=== PATIENT | male | born 1970 | race Caucasian/White ===

== ENCOUNTER → 2024-08-21 | Outpatient (CLI) | payer OTHER, SELFPAY ==
[2024-08-21 13:01] LABS: Fibrinogen 442 mg/dl (203-444)
[2024-08-21 15:08] LABS: CRP 6.11 mg/L (0.0-3.0); Ferritin 336 ng/mL (37-417); Vitamin B12 776 pg/mL (180-914); Vitamin D,25 Hydroxy 37.3 ng/mL (30-100)
[2024-08-21 15:40] LABS: Iron 124 ug/dL (65-175)
[2024-08-23 05:08] LABS: CRP, High Sensitivity 4.54 mg/L (0.00-3.00); HOMOCYSTEINE 6.6 umol/L (0.0-14.5)
== END | disposition home or self-care (01) ==
LOC: BIMLAB 09:21
PROVIDERS: Referring Provider Nurse Practitioner Family; Visit Provider Nurse Practitioner Family
DX: A69.20 Lyme disease, unspecified (principal); G89.29 Other chronic pain; R53.82 Chronic fatigue, unspecified; R61 Generalized hyperhidrosis; H93.13 Tinnitus, bilateral; I10 Essential (primary) hypertension; G90.9 Disorder of the autonomic nervous system, unspecified; F41.9 Anxiety disorder, unspecified; R45.4 Irritability and anger; D68.69 Other thrombophilia
CPT/HCPCS: 36415; 82175; 82306; 82607; 82728; 82746; 83090; 83540; 83655; 83695; 83825; 85305; 85306; 85307; 85384; 86140; 86141; 86644; 86645; 86658; 86664; 86665

== ENCOUNTER → 2025-02-13 | Outpatient (CLI) | payer OTHER, SELFPAY ==
--- OUTSIDE RECORDS SUMMARY | 2025-02-13 16:36 | XMS RPT_ITS | CCD ---
Author Organization [facility] Care Team Providers Care Electronic Prepress Operator Name Role Phone DE LEONLONNYBRAVO L Unavailable Unavailable BRAVO DE LEON L Unavailable Unavailable Physician, No Pcp Primary Care Provider Unavaila ble PHYSICIAN, NO PCP Primary Care Unavailable TRACIE DIAZ Referring Unavailable Kadie AUTO DAMAGE ESTIMATOR, Julia Ruelas Referring Unavailtaya Engle AUTO DAMAGE ESTIMATOR, Julia Ruelas Attending UnavailMARISOL Gutierrez Primary Care Unavailable MARISOL NEAL Attending Unavailable MARISOL NEAL Referring Unavailable MARISOL NEAL Primary Care Unavailable STEFANO RUSSELL Attending Unavailable MARISOL NEAL Referring Unavailable MARISOL NEAL Primary Care Unavailable AUGUST SOTO Attending Unavailable MARISOL NEAL Referring Unavailable MARISOL NEAL Primary Care Unavailable JULIA ENGLE Attending Unavailable JULIA ENGLE Referring Unavailable MARISOL NEAL Primary Care Unavailable PCP, NONE Referring Unavailable MARISOL NEAL Attending Unavailable MARISOL NEAL Referring Unavailable MARISOL NEAL Primary Care Unavailable AUGUST SOTO Attending Unavailable MARISOL NEAL Referring Unavailable MARISOL NEAL Primary Care Unavailable MARISOL NEAL Attending Unavailable Problems Active Problems Problem Classification Problem Date Documented Da te Episodic/Chronic Anxiety disorders (1 source) Anxiety disorder, unspecified; Translations: [Anxiety disorder, unspecified] Onset: 11-02-2024 Chronic Coagulation and hemorrhagic disorders (1 source) Other thrombophilia; Translations: [Other thrombophilia] Onset: 11-02-2024 Chronic Essential hypertension (1 source) Essential (primary) hypertension; Translations: [Essential (primary) hypertension] Onset: 11-02-2024 Chronic Malaise and fatigue (1 source) Chronic fatigue, unspecified; Translations: [Chronic fatigue, unspecified] Onset: 02-06-2025 Chronic Malaise and fatigue (1 source) Other fatigue; Translations: [Other fatigue] Onset: 02-06-2025 Episodic Other connective tissue disease (1 source) Synovial cyst of right popliteal space; Translations: [Synovial cyst of popliteal space [Key], right knee] 02-01-2023 Episodic Other connective tissue disease (1 source) Synovial cyst of popliteal space [Key], right knee; Translations: [Synovial cyst of popliteal space (Key), right knee] Onset: 02-01-2023 Episodic Other infections; including parasitic (1 source) 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; Translations: [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] Onset: 10-24-2024 Chronic Other nervous system disorders (1 source) Other chronic pain; Translations: [Other chronic pain] Onset: 11-02-2024 Chronic Other nervous system disorders (1 source) Disorder of the autonomic nervous system, unspecified; Translations: [Disorder of the autonomic nervous system, unspecified] Onset: 11-02-2024 Chronic Past or Other Problems Problem Classification Problem Date Documented Da te Episodic/Chronic Anxiety disorders (1 source) Irritability and anger; Translations: [Irritability and anger] Onset: 11-02-2024 Episodic Bacterial infection; unspecified site (1 source) Systemic bartonellosis; Translations: [Systemic bartonellosis] Onset: 11-02-2024 Episodic Other ear and sense organ disorders (1 source) Tinnitus, bilateral; Translations: [Tinnitus, bilateral] Onset: 11-02-2024 Episodic Other infections; including parasitic (2 sources) Lyme disease, unspecified; Translations: [Lyme disease, unspecified] Onset: 09-23-2024 Episodic Other lower respiratory disease (1 source) Dyspnea, unspecified; Translations: [Dyspnea, unspecified] Onset: 11-02-2024 Episodic Other screening for suspected conditions (not mental disorders or infectious disease) (1 source) Other specified abnormal findings of blood chemistry; Translations: [Other specified abnormal findings of blood chemistry] Onset: 05-02-2024 Episodic Other skin disorders (1 source) Generalized hyperhidrosis; Translations: [Generalized hyperhidrosis] Onset: 07-06-2025 Episodic Results Test Name Value Interpretation Reference Range Facility CBC AND DIFFERENTIALon 02-06 ABSOLUTE BASOPHIL 0.1 x10*3/uL Normal 0.0-0.1 [facility] Comment on above: Performed By: #### 4 [id number] #### [address] ABSOLUTE EOSINOPHIL 0.6 x10*3/uL High 0.1-0.[address] [facility] Comment on above: Performed By: #### 4 [id number] #### [address] ABSOLUTE IMMATURE GRANULOCYTES 0.0 x10*3/uL Normal 0.0-0.1 [facility] Comment on above: Performed By: #### 4 [id number] #### [address] ABSOLUTE LYMPH 2.6 x10*3/uL Normal 1.2-3.3 [facility] Comment on above: Performed By: #### 4 [id number] #### [address] ABSOLUTE MONO 0.8 x10*3/uL High 0.2-0.6 [facility] Comment on above: Performed By: #### 4 [id number] #### [address] ABSOLUTE NEUTROPHIL 4.0 x10*3/uL Normal 2.4-6.[address] [facility] Comment on above: Performed By: #### 4 [id number] #### [address] Basophils/100 WBC (Bld) 1.2 % Normal [facility] Comment on above: Performed By: #### 4 [id number] #### [address] Eosinophils/100 WBC (Bld) 7.4 % Normal [facility] Comment on above: Performed By: #### 4 [id number] #### [address] Erythrocyte distribution width (RBC) [Ratio] 12.9 % Normal 11.5-14.5 [facility] Comment on above: Performed By: #### 4 [id number] #### [address] Hematocrit (Bld) [Volume fraction] 43.7 % Normal 37.7-51.1 [facility] Comment on above: Performed By: #### 4 [id number] #### [address] Hemoglobin (Bld) [Mass/Vol] 14.8 g/dL Normal 12.8-17.7 [facility] Comment on above: Performed By: #### 4 [id number] #### [address] Immature granulocytes/100 WBC (Bld) 0.2 % Normal [facility] Comment on above: Performed By: #### 4 [id number] #### [address] Lymphocytes/100 WBC (Bld) 31.7 % Normal [facility] Comment on above: Performed By: #### 4 [id number] #### [address] MCH (RBC) [Entitic mass] 32.0 pg Normal 27.0-34.2 [facility] Comment on above: Performed By: #### 4 [id number] #### [address] MCHC (RBC) [Mass/Vol] 33.9 g/dL Normal 31.4-36.2 [facility] Comment on above: Performed By: #### 4 [id number] #### [address] MCV (RBC) [Entitic vol] 94.6 fL Normal 80.6-99 [facility] Comment on above: Performed By: #### 4 [id number] #### [address] Monocytes/100 WBC (Bld) 9.5 % Normal [facility] Comment on above: Performed By: #### 4 [id number] #### [address] Neutrophils/100 WBC (Bld) 50.0 % Normal [facility] Comment on above: Performed By: #### 4 [id number] #### [address] NUCLEATED RED BLOOD CELLS AUTO 0.0 % Normal 0.0-1.0 [facility] Comment on above: Performed By: #### 4 [id number] #### [address] PLATELET COUNT 223 x10*3/uL Normal 150-400 [facility] Comment on above: Performed By: #### 4 [id number] #### [address] RED BLOOD CELL COUNT 4.62 x10*6/uL Normal 3.70-5.70 [facility] Comment on above: Performed By: #### 4 [id number] #### [address] WHITE BLOOD CELLS 8.1 x10*3/uL Normal 4.3-10.3 [facility] Comment on above: Performed By: #### 4 [id number] #### [address] COMPREHENSIVE METABOLIC PANE Titi 02-06-2025 Albumin [Mass/Vol] 4.6 g/dL Normal 3.5-5.0 [facility] Comment on above: Performed By: #### 4 [id number] #### [address] ALK PHOS 58 U/L Normal 24-126 [facility] Comment on above: Performed By: #### 4 [id number] #### [address] ALT [Catalytic activity/Vol] 30 U/L Normal 4-50 [facility] Comment on above: Performed By: #### 4 [id number] #### [address] AST [Catalytic activity/Vol] 33 U/L Normal 3-55 [facility] Comment on above: Performed By: #### 4 [id number] #### [address] Bilirubin [Mass/Vol] 0.2 mg/dL Normal 0.2-1.6 [facility] Comment on above: Performed By: #### 4 [id number] #### [address] Calcium [Mass/Vol] 9.8 mg/dL Normal 8.4-10.4 [facility] Comment on above: Performed By: #### 4 [id number] #### [address] Chloride [Moles/Vol] 101 mmol/L Normal 96-109 [facility] Comment on above: Performed By: #### 4 [id number] #### [address] CO2 [Moles/Vol] 29 mmol/L Normal 22-30 [facility] Comment on above: Performed By: #### 4 [id number] #### [address] Creatinine [Mass/Vol] 0.75 mg/dL Normal 0.66-1.25 [facility] Comment on above: Performed By: #### 4 [id number] #### [place] [address] [place] GLOMERULAR FILTRATION RATE ML/MIN/1.73 SQ M.PREDICTED 105.9 mL/min/1.73m*2 Normal >=60.0 [facility] Comment on above: Result Comment: eGFR calculation based on the Chronic Kidney Disease Epidemiology Collaboration (CKD-EPI) equation refit without adjustment for race. Categories in Chronic Kidney Disease (CKD) Category: GFR(mL/min/1.73m^2) Interpretation: G1* 90 or greater Normal or high G2* 60-89 Mild decrease G3a 45-59 Mild to moderate decrease G3b 30-44 Moderate to severe decrease G4 15-29 Severe decrease G5 14 or less Kidney failure *G1&G2: In the absence of evidence of kidney damage, neither GFR category G1 nor G2 fulfill the criteria for CKD Kidney Int Suppl.2013;3:1-150 Performed By: #### 4 [id number] #### [address] [address] Glucose [Mass/Vol] 110 mg/dL High 65-100 [facility] Comment on above: Performed By: #### 4 [id number] #### [address] Potassium [Moles/Vol] 4.1 mmol/L Normal 3.6-5.1 [facility] Comment on above: Performed By: #### 4 [id number] #### [address] Protein [Mass/Vol] 7.2 g/dL Normal 6.3-8.2 [facility] Comment on above: Performed By: #### 4 [id number] #### [address] Sodium [Moles/Vol] 138 mmol/L Normal 135-147 [facility] Comment on above: Performed By: #### 4 [id number] #### [address] Urea nitrogen [Mass/Vol] 17 mg/dL Normal 8-26 [facility] Comment on above: Performed By: #### 4 [id number] #### [address] CBC AND DIFFERENTIALon 12-08 ABSOLUTE BASOPHIL 0.1 x10*3/uL Normal 0.0-0.1 [facility] Comment on above: Performed By: #### 4 [id number] #### [address] ABSOLUTE EOSINOPHIL 0.7 x10*3/uL High 0.1-0.3 [facility] Comment on above: Performed By: #### 4 [id number] #### [address] ABSOLUTE IMMATURE GRANULOCYTES 0.0 x10*3/uL Normal 0.0-0.1 [facility] Comment on above: Performed By: #### 4 [id number] #### [address] ABSOLUTE LYMPH 2.7 x10*3/uL Normal 1.2-3.3 [facility] Comment on above: Performed By: #### 4 [id number] #### [address] ABSOLUTE MONO 0.9 x10*3/uL High 0.2-0.6 [facility] Comment on above: Performed By: #### 4 [id number] #### [address] ABSOLUTE NEUTROPHIL 4.5 x10*3/uL Normal 2.4-6.6 [facility] Comment on above: Performed By: #### 4 [id number] #### [address] Basophils/100 WBC (Bld) 0.9 % Normal [facility] Comment on above: Performed By: #### 4 [id number] #### [address] Eosinophils/100 WBC (Bld) 7.6 % Normal [facility] Comment on above: Performed By: #### 4 [id number] #### [address] Erythrocyte distribution width (RBC) [Ratio] 14.0 % Normal 11.5-14.5 [facility] Comment on above: Performed By: #### 4 [id number] #### [address] Hematocrit (Bld) [Volume fraction] 43.4 % Normal 37.7-51.1 [facility] Comment on above: Performed By: #### 4 [id number] #### [address] Hemoglobin (Bld) [Mass/Vol] 14.8 g/dL Normal 12.8-17.7 [facility] Comment on above: Performed By: #### 4 [id number] #### [address] Immature granulocytes/100 WBC (Bld) 0.3 % Normal [facility] Comment on above: Performed By: #### 4 [id number] #### [address] Lymphocytes/100 WBC (Bld) 30.0 % Normal [facility] Comment on above: Performed By: #### 4 [id number] #### [address] MCH (RBC) [Entitic mass] 31.2 pg Normal 27.0-34.2 [facility] Comment on above: Performed By: #### 4 [id number] #### [address] MCHC (RBC) [Mass/Vol] 34.1 g/dL Normal 31.4-36.2 [facility] Comment on above: Performed By: #### 4 [id number] #### [address] MCV (RBC) [Entitic vol] 91.4 fL Normal 80.6-99 [facility] Comment on above: Performed By: #### 4 [id number] #### [address] Monocytes/100 WBC (Bld) 10.0 % Normal [facility] Comment on above: Performed By: #### 4 [id number] #### [address] Neutrophils/100 WBC (Bld) 51.2 % Normal [facility] Comment on above: Performed By: #### 4 [id number] #### [address] NUCLEATED RED BLOOD CELLS AUTO 0.0 % Normal 0.0-1.0 [facility] Comment on above: Performed By: #### 4 [id number] #### [address] PLATELET COUNT 244 x10*3/uL Normal 150-400 [facility] Comment on above: Performed By: #### 4 [id number] #### [address] RED BLOOD CELL COUNT 4.75 x10*6/uL Normal 3.70-5.70 [facility] Comment on above: Performed By: #### 4 [id number] #### [address] WHITE BLOOD CELLS 8.9 x10*3/uL Normal 4.3-10.3 [facility] Comment on above: Performed By: #### 4 [id number] #### [address] COMPREHENSIVE METABOLIC PANE Titi 12-08-2024 Albumin [Mass/Vol] 4.4 g/dL Normal 3.5-5.0 [facility] Comment on above: Performed By: #### 4 [id number] #### [address] ALK PHOS 72 U/L Normal 24-126 [facility] Comment on above: Performed By: #### 4 [id number] #### [address] ALT [Catalytic activity/Vol] 51 U/L High 4-50 [facility] Comment on above: Performed By: #### 4 [id number] #### [address] Anion gap [Moles/Vol] 11 mmol/L Normal 8-12 [facility] Comment on above: Performed By: #### 4 [id number] #### [address] AST [Catalytic activity/Vol] 40 U/L Normal 3-55 [facility] Comment on above: Performed By: #### 4 [id number] #### [address] Bilirubin [Mass/Vol] 0.3 mg/dL Normal 0.2-1.6 [facility] Comment on above: Performed By: #### 4 [id number] #### [address] Calcium [Mass/Vol] 9.7 mg/dL Normal 8.4-10.4 [facility] Comment on above: Performed By: #### 4 [id number] #### [address] Chloride [Moles/Vol] 101 mmol/L Normal 96-109 [facility] Comment on above: Performed By: #### 4 [id number] #### [address] CO2 [Moles/Vol] 26 mmol/L Normal 22-30 [facility] Comment on above: Performed By: #### 4 [id number] #### [address] [address] [facility] Creatinine [Mass/Vol] 0.75 mg/dL Normal 0.66-1.25 [facility] Comment on above: Performed By: #### 4 [id number] #### [address] GLOMERULAR FILTRATION RATE ML/MIN/1.73 SQ M.PREDICTED 105.9 mL/min/1.73m*2 Normal >=60.0 [facility] Comment on above: Result Comment: eGFR calculation based on the Chronic Kidney Disease Epidemiology Collaboration (CKD-EPI) equation refit without adjustment for race. Categories in Chronic Kidney Disease (CKD) Category: GFR(mL/min/1.73m^2) Interpretation: G1* 90 or greater Normal or high G2* 60-89 Mild decrease G3a 45-59 Mild to moderate decrease G3b 30-44 Moderate to severe decrease G4 15-29 Severe decrease G5 14 or less Kidney failure *G1&G2: In the absence of evidence of kidney damage, neither GFR category G1 nor G2 fulfill the criteria for CKD Kidney Int Suppl.2013;3:1-150 Performed By: #### 4 [id number] #### [address] Glucose [Mass/Vol] 63 mg/dL Low 65-100 [facility] Comment on above: Performed By: #### 4 [id number] #### [address] Potassium [Moles/Vol] 4.0 mmol/L Normal 3.6-5.1 [facility] Comment on above: Performed By: #### 4 [id number] #### [address] [address] [facility] Protein [Mass/Vol] 7.1 g/dL Normal 6.3-8.2 [facility] Comment on above: Performed By: #### 4 [id number] #### [address] [address] [facility] Sodium [Moles/Vol] 138 mmol/L Normal 135-147 [facility] Comment on above: Performed By: #### 4 [id number] #### [address] [place] [address] [place] Urea nitrogen [Mass/Vol] 15 mg/dL Normal 8-26 [facility] Comment on above: Performed By: #### 4 [id number] #### [address] [place] [address] [place] HEMOGLOBIN A1Con 12-08-2024 HbA1c (Bld) [Mass fraction] 5.8 % High 4.8-5.6 [facility] Comment on above: Order Comment: Perfo rmed at: 01 - [facility] [id number] [place], [place] [id number] Director: Dmitriy Hardin PhD, Phone: [phone] Result Comment: Pred iabetes: 5.7 - 6.4 Diabetes: >6.4 Glycemic control for adults with diabetes: <7.0 Performed By: #### 4 [id number] #### [address] [address] [place] INSULIN, FASTINGon INSULIN 33.0 uIU/mL High 2.6-24.9 [facility] Comment on above: Order Comment: Perfo rmed at: 01 - [facility] [id number] [place], [place] [id number] Scale Model Maker: Dmitriy Hardin PhD, Phone: [phone] Performed By: #### 4 [id number] #### [facility] [address] [place] [address] LIPID PANELon 12-08-2024 Cholesterol [Mass/Vol] 215 mg/dL High <=200 [facility] Comment on above: Performed By: #### 4 [id number], [id number] #### [address] [address] [facility] Cholesterol in HDL [Mass/Vol] 41.0 mg/dL Normal 40.0-59.9 [facility] Comment on above: Performed By: #### 4 [id number], [id number] #### [address] [address] LDL CHOLESTEROL CALCULATED 118 mg/dL High <=100 [facility] Comment on above: Result Comment: LDL REFERENCE RANGE: Optimal <100 mg/dl Near Optimal 100-129 mg/dL Borderline High 130-159 mg/dL High 160-189 mg/dL Very High >=190 mg/dL LDL-c is calculated using the Friedewald equation: LDL Cholesterol = (Total Cholesterol) - (HDL Cholesterol) - (Triglycerides/5). Performed By: #### 4 [id number], [id number] #### [address] [place] [address] [facility] Triglyceride [Mass/Vol] 278 mg/dL High <=150 [facility] Comment on above: Performed By: #### 4 [id number], [id number] #### [facility] [address] [place] [address] VLDL CHOLESTEROL BELKYS 56 mg/dL High <=41 [facility] Comment on above: Performed By: #### 4 [id number], [id number] #### [facility] [address] [place] [address] MISC LAB TESTon 11-03-2024 TEST RESULT COMMENT Normal [facility] Comment on above: Order Comment: Perfo rmed At: 01 [email or web address] [address] [id number] Abel Mckinney MD Ph:[phone] Performed At: [address] [id number] Lashawn Izaguirre PhD Ph:[phone] Result Comment: Test Ordered: [id number] MICHAEL-1 Antigen MICHAEL-1 Antigen 79.5 [H ] ng/mL 01 Plasma samples that contain residual platelets post centrifugation may yield spuriously elevated MICHAEL-1 antigen levels following a freeze thaw due to release of intra-platelet stores of MICHAEL-1 antigen. Serum will also yield a spuriously high MICHAEL-1 antigen level. Reference Range: 4.0 - 43.0 Performed By: #### 4 [id number] #### [facility] [address] [place] [address] CBC AND DIFFERENTIALon 11-02 ABSOLUTE BASOPHIL 0.1 x10*3/uL Normal 0.0-0.1 [facility] Comment on above: Performed By: #### 4 [id number] #### [facility] [address] [place] [address] ABSOLUTE EOSINOPHIL 0.5 x10*3/uL High 0.1-0.3 [facility] Comment on above: Performed By: #### 4 [id number] #### [facility] [address] [place] [address] ABSOLUTE IMMATURE GRANULOCYTES 0.0 x10*3/uL Normal 0.0-0.1 [facility] Comment on above: Performed By: #### 4 [id number] #### [facility] [address] [place] [address] ABSOLUTE LYMPH 1.6 x10*3/uL Normal 1.2-3.3 [facility] Comment on above: Performed By: #### 4 [id number] #### [address] ABSOLUTE MONO 0.5 x10*3/uL Normal 0.2-0.6 [facility] Comment on above: Performed By: #### 4 [id number] #### [address] ABSOLUTE NEUTROPHIL 4.0 x10*3/uL Normal 2.4-6.6 [facility] Comment on above: Performed By: #### 4 [id number] #### [address] Basophils/100 WBC (Bld) 0.9 % Normal [facility] Comment on above: Performed By: #### 4 [id number] #### [address] Eosinophils/100 WBC (Bld) 7.8 % Normal [facility] Comment on above: Performed By: #### 4 [id number] #### [address] Erythrocyte distribution width (RBC) [Ratio] 13.2 % Normal 11.5-14.5 [facility] Comment on above: Performed By: #### 4 [id number] #### [address] Hematocrit (Bld) [Volume fraction] 44.2 % Normal 37.7-51.1 [facility] Comment on above: Performed By: #### 4 [id number] #### [address] Hemoglobin (Bld) [Mass/Vol] 14.8 g/dL Normal 12.8-17.7 [facility] Comment on above: Performed By: #### 4 [id number] #### [address] Immature granulocytes/100 WBC (Bld) 0.3 % [facility] Comment on above: Performed By: #### 4 [id number] #### [address] Lymphocytes/100 WBC (Bld) 24.0 % Normal [facility] Comment on above: Performed By: #### 4 [id number] #### [address] MCH (RBC) [Entitic mass] 30.1 pg Normal 27.0-34.2 [facility] Comment on above: Performed By: #### 4 [id number] #### [address] MCHC (RBC) [Mass/Vol] 33.5 g/dL Normal 31.4-36.2 [facility] Comment on above: Performed By: #### 4 [id number] #### [address] MCV (RBC) [Entitic vol] 90.0 fL Normal 80.6-99 [facility] Comment on above: Performed By: #### 4 [id number] #### [address] Monocytes/100 WBC (Bld) 7.8 % Normal [facility] Comment on above: Performed By: #### 4 [id number] #### [address] Neutrophils/100 WBC (Bld) 59.2 % Normal [facility] Comment on above: Performed By: #### 4 [id number] #### [address] PLATELET COUNT 196 x10*3/uL Normal 150-400 [facility] Comment on above: Performed By: #### 4 [id number] #### [address] RED BLOOD CELL COUNT 4.91 x10*6/uL Normal 3.70-5.70 [facility] Comment on above: Performed By: #### 4 [id number] #### [address] WHITE BLOOD CELLS 6.8 x10*3/uL Normal 4.3-10.3 [facility] Comment on above: Performed By: #### 4 [id number] #### [address] COMPREHENSIVE METABOLIC PANE Titi 11-02-2024 Albumin [Mass/Vol] 4.2 g/dL Normal 3.5-5.0 [facility] Comment on above: Performed By: #### 4 [id number] #### [address] ALK PHOS 77 U/L Normal 24-126 [facility] Comment on above: Performed By: #### 4 [id number] #### [address] ALT [Catalytic activity/Vol] 116 U/L High 4-50 [facility] Comment on above: Performed By: #### 4 [id number] #### [address] AST [Catalytic activity/Vol] 58 U/L High 3-55 [facility] Comment on above: Performed By: #### 4 [id number] #### [address] Bilirubin [Mass/Vol] 0.4 mg/dL Normal 0.2-1.6 [facility] Comment on above: Performed By: #### 4 [id number] #### [address] Calcium [Mass/Vol] 9.6 mg/dL Normal 8.4-10.4 [facility] Comment on above: Performed By: #### 4 [id number] #### [address] Chloride [Moles/Vol] 103 mmol/L Normal 96-109 [facility] Comment on above: Performed By: #### 4 [id number] #### [address] CO2 [Moles/Vol] 24 mmol/L Normal 22-30 [facility] Comment on above: Performed By: #### 4 [id number] #### [address] [address] Creatinine [Mass/Vol] 0.69 mg/dL Normal 0.66-1.25 [facility] Comment on above: Performed By: #### 4 [id number] #### [address] GLOMERULAR FILTRATION RATE ML/MIN/1.73 SQ M.PREDICTED 108.6 mL/min/1.73m*2 Normal >=60.0 [facility] Comment on above: Result Comment: eGFR calculation based on the Chronic Kidney Disease Epidemiology Collaboration (CKD-EPI) equation refit without adjustment for race. Categories in Chronic Kidney Disease (CKD) Category: GFR(mL/min/1.73m^2) Interpretation: G1* 90 or greater Normal or high G2* 60-89 Mild decrease G3a 45-59 Mild to moderate decrease G3b 30-44 Moderate to severe decrease G4 15-29 Severe decrease G5 14 or less Kidney failure *G1&G2: In the absence of evidence of kidney damage, neither GFR category G1 nor G2 fulfill the criteria for CKD Kidney Int Suppl.2013;3:1-150 Performed By: #### 4 [id number] #### [address] [address] [place] Glucose [Mass/Vol] 118 mg/dL High 65-100 [facility] Comment on above: Performed By: #### 4 [id number] #### [address] [address] [place] Potassium [Moles/Vol] 4.4 mmol/L Normal 3.6-5.1 [facility] Comment on above: Performed By: #### 4 [id number] #### [address] [place] [address] [place] Protein [Mass/Vol] 7.3 g/dL Normal 6.3-8.2 [facility] Comment on above: Performed By: #### 4 [id number] #### [address] [place] [address] [place] Sodium [Moles/Vol] 137 mmol/L Normal 135-147 [facility] Comment on above: Performed By: #### 4 [id number] #### [address] [place] [address] [place] Urea nitrogen [Mass/Vol] 17 mg/dL Normal 8-26 [facility] Comment on above: Performed By: #### 4 [id number] #### [address] [place] [address] [place] FACTOR II ACTIVITYon 025 FACTOR II ACTIVITY 118 % Normal 50-154 [facility] Comment on above: Order Comment: Perfo rmed at: [address] [id number] Director: Brook Sebastian MD, Phone: [phone] Performed By: #### 4 [id number] #### [address] LAB TESTon 11-02-2024 TEST RESULT COMMENT Normal [facility] Comment on above: Order Comment: Perfo rmed At: 01 [email or web address] [address] [id number] Abel Mckinney MD Ph:[phone] Performed At: [address] [id number] Lashawn Izaguirre PhD Ph:[phone] Result Comment: Test Ordered: [id number] MICHAEL-1 Gene Polymorphism MICHAEL-1 Locus 4G/5G Polymorphism Comment 01 Patient DNA was evaluated for the MICHAEL-1 4G/5G promoter polymorphism, which is a single base pair guanine (4G/5G) deletion/insertion polymorphism, using polymerase chain reaction (PCR) technology and restriction fragment length polymorphism (RFLP). 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 The 4G/4G genotype is associated with the highest MICHAEL-1 activity and antigen levels compared to those individuals that have either the 5G/5G or 4G/5G genotype. The 4G/4G genotype is associated with enhanced [place] man and MICHAEL levels about 25% higher than those with a 5G/5G genotype. Elevated MICHAEL-1 levels are associated with an increased risk of coronary artery disease, venous thromboembolic disease and possibly complications of such as recurrent . Comments Comment 01 Simultaneous Risks: If a patient possesses two or more congenital or acquired risk factors, the risk of disease may rise to more than the sum of the risk ratios for the individual risk factors. For instance, a combination of the 4G/4G genotype and the insulin resistance syndrome may confer an increase in cardiovascular disease risk over that conferred by the presence of an isolated MICHAEL-1 4G/4G polymorphism. Recommendations for Genetic Counseling: The MCIHAEL-1 4G allele is an inherited characteristic. If the polymorphism is present in a heterozygous or homozygous fashion, we recommend that the patient and their family consider genetic counseling to obtain additional information on inheritance and to identify other family members at risk. Testing Characteristics: Genetic testing by PCR provides exceptionally high sensitivity and specificity. Incorrect genotyping results can be caused by rare polymorphisms in primer binding sites and to misidentification of specimens by collectors or laboratory personnel. This assay analyzes only the MICHAEL 4G/5G locus and does not measure genetic abnormalities elsewhere in the genome. This test was developed and its performance characteristics determined by [facility]. It has not been cleared or approved by the Food and Drug Administration. References: Nakita White. Thromb Haemost. 2003;90:1061.; Sukumar. Clin Chem. 2003;49:1081.; Saji et al. NEJM. 2000;342:1792.; Fani Melton et al. Arterioscl Thromb and Vasc Bio. 1998;18:152. Performed By: #### 4 [id number] #### [address] L3410.9992on 09-04-2024 [facility] COMMENT Normal . [facility] Comment on above: Order Comment: N Result Comment: Test Ordered: 392001 Thrombin Antithrombin Complex Thrombin Antithrombin Complex 2.1 ng/mL UY Reference Range: . Pre-analytical conditions such as a difficult draw may spuriously increase test results. Reference Range: <4.3 Performed at: [employer] [address] [id number] Scale Model Maker: Ruslan Roman MD, Phone: [phone] Performed at: [facility] [address] [id number] Scale Model Maker: Dmitriy Hardin PhD, Phone: [phone] Performed By: #### L 506.0200, L501.6710, L503.6150, L300.4700, L503.0106, L3100.5850, L3400.1500, L506.1001, L3100.6425, L503.6550, L3400.1490, L3400.4600, L803.0600, L804.3000, L3410.9992, L3100.7870, L7000.9350, L3100.7075 #### [facility] [address] [place], [place], [id number] Activated Protein C Resistan ceon 08-27-2024 APCR 2.9 ratio Normal 2.2-3.5 [facility] Comment on above: Order Comment: Test( s) 391073-Uftl, Blood; 523722-Lhqtbbt, Blood; 948137- Mercury, Blood was developed and its performance characteristics determined by [employer]. It has not been cleared or approved by the Food and Drug Administration. Result Comment: The APCR result may be falsely increased (masking an abnormal, low APCR result) in patients on direct Xa inhibitor (e.g., rivaroxaban, apixaban, edoxaban) or a direct thrombin inhibitor (e.g., dabigatran) anticoagulant therapy due to assay interference by these drugs. Performed By: #### L 506.0200, L501.6710, L503.6150, L300.4700, L503.0106, L3100.5850, L3400.1500, L506.1001, L3100.6425, L503.6550, L3400.1490, L3400.4600, L803.0600, L804.3000, L3410.9992, L3100.7870, L7000.9350, L3100.7075 #### [facility] [address] [place], [place], [address] CMV Acute Antibody IgMon CMV Ab, IgM < 30.0 Normal 0.0-29.9 [facility] Comment on above: Order Comment: N Result Comment: Nega tive <30.0 Equivocal 30.0 - 34.9 Positive >34.9 A positive result is generally indicative of acute infection, reactivation or persistent IgM production. Performed By: #### L 506.0200, L501.6710, L503.6150, L300.4700, L503.0106, L3100.5850, L3400.1500, L506.1001, L3100.6425, L503.6550, L3400.1490, L3400.4600, L803.0600, L804.3000, L3410.9992, L3100.7870, L7000.9350, L3100.7075 #### [facility] [address] [place], [address] CMV Antibody IgGon CMV AB IgG 5.00 U/mL High 0.00-0.59 [facility] Comment on above: Order Comment: N Result Comment: Nega tive <0.60 Equivocal 0.60 - 0.69 Positive >0.69 Performed By: #### L 506.0200, L501.6710, L503.6150, L300.4700, L503.0106, L3100.5850, L3400.1500, L506.1001, L3100.6425, L503.6550, L3400.1490, L3400.4600, L803.0600, L804.3000, L3410.9992, L3100.7870, L7000.9350, L3100.7075 #### [facility] [address] [place], [address] Coxsackie Virus Group Bon COXSACKIE B1 Ab 1:1000 Abnormal Neg:<1:100 [facility] Comment on above: Order Comment: N Performed By: #### L 506.0200, L501.6710, L503.6150, L300.4700, L503.0106, L3100.5850, L3400.1500, L506.1001, L3100.6425, L503.6550, L3400.1490, L3400.4600, L803.0600, L804.3000, L3410.9992, L3100.7870, L7000.9350, L3100.7075 #### [facility] [address] [place], [address] COXSACKIE B2 Ab 1:500 Abnormal Neg:<1:100 [facility] Comment on above: Order Comment: N Performed By: #### L 506.0200, L501.6710, L503.6150, L300.4700, L503.0106, L3100.5850, L3400.1500, L506.1001, L3100.6425, L503.6550, L3400.1490, L3400.4600, L803.0600, L804.3000, L3410.9992, L3100.7870, L7000.9350, L3100.7075 #### [facility] [address] [place], [place], [id number] (931) COXSACKIE B3 Ab 1:500 Abnormal Neg:<1:100 [facility] Comment on above: Order Comment: N Performed By: #### L 506.0200, L501.6710, L503.6150, L300.4700, L503.0106, L3100.5850, L3400.1500, L506.1001, L3100.6425, L503.6550, L3400.1490, L3400.4600, L803.0600, L804.3000, L3410.9992, L3100.7870, L7000.9350, L3100.7075 #### [facility] [address] [place], [address] COXSACKIE B4 Ab 1:500 Abnormal Neg:<1:100 [facility] Comment on above: Order Comment: N Performed By: #### L 506.0200, L501.6710, L503.6150, L300.4700, L503.0106, L3100.5850, L3400.1500, L506.1001, L3100.6425, L503.6550, L3400.1490, L3400.4600, L803.0600, L804.3000, L3410.9992, L3100.7870, L7000.9350, L3100.7075 #### [facility] [address] [place], [place], [id number] (553) COXSACKIE B5 Ab 1:1000 Abnormal Neg:<1:100 [facility] Comment on above: Order Comment: N Performed By: #### L 506.0200, L501.6710, L503.6150, L300.4700, L503.0106, L3100.5850, L3400.1500, L506.1001, L3100.6425, L503.6550, L3400.1490, L3400.4600, L803.0600, L804.3000, L3410.9992, L3100.7870, L7000.9350, L3100.7075 #### [facility] [address] [facility]. [place], [place], [id number] COXSACKIE B6 Ab 1:1000 Abnormal Neg:<1:100 [facility] Comment on above: Order Comment: N Performed By: #### L 506.0200, L501.6710, L503.6150, L300.4700, L503.0106, L3100.5850, L3400.1500, L506.1001, L3100.6425, L503.6550, L3400.1490, L3400.4600, L803.0600, L804.3000, L3410.9992, L3100.7870, L7000.9350, L3100.7075 #### [facility] [address] [facility]. [place], [place], [address] EBV Acute Prof IgG / IgMon 0 - EB Ab VCA, IgG 392.0 U/mL High 0.0-17.9 [facility] Comment on above: Order Comment: N Result Comment: Nega tive <18.0 Equivocal 18.0 - 21.9 Positive >21.9 Performed By: #### L 506.0200, L501.6710, L503.6150, L300.4700, L503.0106, L3100.5850, L3400.1500, L506.1001, L3100.6425, L503.6550, L3400.1490, L3400.4600, L803.0600, L804.3000, L3410.9992, L3100.7870, L7000.9350, L3100.7075 #### [facility] [address] [place], [place], [address] EBV Ab VCA, IgM < 36.0 Normal 0.0-35.9 [facility] Comment on above: Order Comment: N Result Comment: Nega tive <36.0 Equivocal 36.0 - 43.9 Positive >43.9 Performed By: #### L 506.0200, L501.6710, L503.6150, L300.4700, L503.0106, L3100.5850, L3400.1500, L506.1001, L3100.6425, L503.6550, L3400.1490, L3400.4600, L803.0600, L804.3000, L3410.9992, L3100.7870, L7000.9350, L3100.7075 #### [facility] [address] [place], [address] EBV NuAg Ab,IgG > 600.0 High 0.0-17.9 [facility] Comment on above: Order Comment: N Result Comment: Nega tive <18.0 Equivocal 18.0 - 21.9 Positive >21.9 Performed By: #### L 506.0200, L501.6710, L503.6150, L300.4700, L503.0106, L3100.5850, L3400.1500, L506.1001, L3100.6425, L503.6550, L3400.1490, L3400.4600, L803.0600, L804.3000, L3410.9992, L3100.7870, L7000.9350, L3100.7075 #### [facility] [address] [facility] [place], [address] INTERPRETATION Comment Normal . [facility] Comment on above: Order Comment: N Result Comment: EBV Interpretation Chart Bryan: Antibody Present + Antibody Absent - Interpretation VCA-IgM VCA-IgG EBNA-IgG No previous infection/ - - - Susceptible Primary infection (new + + - or recent) Past Infection +or- + + See comment below* + - - *Results indicate infection with EBV at some time however cannot predict the timing of the infection since antibodies to EBNA usually develop after primary infection or, alternatively, approximately 5-10% of patients with EBV never develop antibodies to EBNA. Performed By: #### L 506.0200, L501.6710, L503.6150, L300.4700, L503.0106, L3100.5850, L3400.1500, L506.1001, L3100.6425, L503.6550, L3400.1490, L3400.4600, L803.0600, L804.3000, L3410.9992, L3100.7870, L7000.9350, L3100.7075 #### [facility] [address] [facility]. [place], [place], [id number] Heavy Metals, Bloodon 2024 ARSENIC,BLOOD 1 ug/L Normal 0-9 [facility] Comment on above: Order Comment: N Result Comment: Dete ction Limit = 1 Performed By: #### L 506.0200, L501.6710, L503.6150, L300.4700, L503.0106, L3100.5850, L3400.1500, L506.1001, L3100.6425, L503.6550, L3400.1490, L3400.4600, L803.0600, L804.3000, L3410.9992, L3100.7870, L7000.9350, L3100.7075 #### [facility] [address] [facility]. [place], [place], [id number] LEAD, BLOOD < 1.0 Normal 0.0-3.4 [facility] Comment on above: Order Comment: N Result Comment: Test ing performed by Inductively coupled plasma/Mass Spectrometry. Environmental Exposure: WHO Recommendation <5.0 Occupational Exposure: OSHA Lead Std 40.0 BALDEMAR 30.0 Detection Limit = 1.0 Performed By: #### L 506.0200, L501.6710, L503.6150, L300.4700, L503.0106, L3100.5850, L3400.1500, L506.1001, L3100.6425, L503.6550, L3400.1490, L3400.4600, L803.0600, L804.3000, L3410.9992, L3100.7870, L7000.9350, L3100.7075 #### [facility] [address] [place], [place], [id number] MERCURY,BLOOD < 1.0 Normal 0.0-14.9 [facility] Comment on above: Order Comment: N Result Comment: Dete ction Limit = 1.0 Performed By: #### L 506.0200, L501.6710, L503.6150, L300.4700, L503.0106, L3100.5850, L3400.1500, L506.1001, L3100.6425, L503.6550, L3400.1490, L3400.4600, L803.0600, L804.3000, L3410.9992, L3100.7870, L7000.9350, L3100.7075 #### [facility] [address] [place], [place], [address] L3410.9992on 08-27-2024 [facility] Misc. COMMENT Normal . [facility] Comment on above: Order Comment: N Result Comment: Test Ordered: [id number] HHV-6 IgM and IgG Ab IFA HHV-6 IgG IFA Comment EURTX Reference Range: . > or = 1:1280 For most of the population, adults will demonstrate antibodies and declining titers with age. Detectable HHV-6 IgG titer is not commonly observed for pediatric patients. Immunocompromised patients may experience a primary infection or reactivation of a latent infection, leading to potentially serious complications. The detection of anti-HHV-6 IgM or a fourfold rise in anti-HHV-6 IgG supports a clinical diagnosis. This test was developed and its performance characteristics determined by [employer]. It has not been cleared or approved by the U.S. Food and Drug Administration. Results should be used in conjunction with clinical findings, and should not form the sole basis for a diagnosis or treatment decision. HHV-6 IgM IFA <1:20 [employer] Reference Range: <1:20 The reference range listed indicates that IgM antibodies to HHV-6 are below the limit of detection of the assay. The reference range also describes the level of HHV-6 IgM antibodies found in an apparently healthy adult population. This test was developed and its performance characteristics determined by [employer]. It has not been cleared or approved by the U.S. Food and Drug Administration. Results should be used in conjunction with clinical findings, and should not form the sole basis for a diagnosis or treatment decision. FLAG Interpretation: A = Abnormal, H = High, L = Low Effective February 27, 2022 [id number] Human Herpes Virus Type 6 IgM will be made non-orderable. [employer] will offer [id number] Human Herpes Virus Type 6 IgM. For further information, please contact your local [facility]. Performed at: [employer] [address] [place] [address], [address] [id number] Scale Model Maker: SAM Clark PhDBC, Phone: [phone] Performed at: [facility] [employer] [id number] Scale Model Maker: Dmitriy Hardin PhD, Phone: [phone] Performed By: #### L 506.0200, L501.6710, L503.6150, L300.4700, L503.0106, L3100.5850, L3400.1500, L506.1001, L3100.6425, L503.6550, L3400.1490, L3400.4600, L803.0600, L804.3000, L3410.9992, L3100.7870, L7000.9350, L3100.7075 #### [facility] [address] [place], [place], [id number] Lipoprotein Aon 08-27-2024 Lipoprotein a [Moles/Vol] 15.5 nmol/L Normal <75.0 [facility] Comment on above: Order Comment: N Result Comment: Note : Values greater than or equal to 75.0 nmol/L may indicate an independent risk factor for CHD, but must be evaluated with caution when applied to non- populations due to the influence of genetic factors on Lp(a) across ethnicities. Performed at: - [facility] [id number] Scale Model Maker: Brook Sebastian MD, Phone: [phone] Performed at: - [facility] [address] [id number] Scale Model Maker: Dmitriy Hardin PhD, Phone: [phone] Performed By: #### L 506.0200, L501.6710, L503.6150, L300.4700, L503.0106, L3100.5850, L3400.1500, L506.1001, L3100.6425, L503.6550, L3400.1490, L3400.4600, L803.0600, L804.3000, L3410.9992, L3100.7870, L7000.9350, L3100.7075 #### [facility] [address] [place], [address] Protein S Defic. Profileon 0 08-27-2024 PROTEIN S, FREE 119 Normal 61-136 [facility] Comment on above: Order Comment: N Performed By: #### L 506.0200, L501.6710, L503.6150, L300.4700, L503.0106, L3100.5850, L3400.1500, L506.1001, L3100.6425, L503.6550, L3400.1490, L3400.4600, L803.0600, L804.3000, L3410.9992, L3100.7870, L7000.9350, L3100.7075 #### [facility] [address] [place], [address] PROTEIN S, FUNC 89 Normal 63-140 [facility] Comment on above: Order Comment: N Result Comment: Prot ein S activity may be falsely increased (masking an abnormal, low result) in patients receiving direct Xa inhibitor (e.g., rivaroxaban, apixaban, edoxaban) or a direct thrombin inhibitor (e.g., dabigatran) anticoagulant treatment due to assay interference by these drugs. Performed By: #### L 506.0200, L501.6710, L503.6150, L300.4700, L503.0106, L3100.5850, L3400.1500, L506.1001, L3100.6425, L503.6550, L3400.1490, L3400.4600, L803.0600, L804.3000, L3410.9992, L3100.7870, L7000.9350, L3100.7075 #### [facility] [address] [facility] [place], [address] PROTEIN S,TOTAL 93 Normal 60-150 [facility] Comment on above: Order Comment: N Result Comment: This test was developed and its performance characteristics determined by [employer]. It has not been cleared or approved by the Food and Drug Administration. Performed By: #### L 506.0200, L501.6710, L503.6150, L300.4700, L503.0106, L3100.5850, L3400.1500, L506.1001, L3100.6425, L503.6550, L3400.1490, L3400.4600, L803.0600, L804.3000, L3410.9992, L3100.7870, L7000.9350, L3100.7075 #### [facility] [address] [place], [address] CRP, High Sensitivity [id number] on 08-23-2024 CRP, HIGH SENS 4.54 mg/L High 0.00-3.00 [facility] Comment on above: Result Comment: Rela tive Risk for Future Cardiovascular Event Low <1.00 Average 1.00 - 3.00 High >3.00 Performed By: #### L 506.0200, L501.6710, L503.6150, L300.4700, L503.0106, L3100.5850, L3400.1500, L506.1001, L3100.6425, L503.6550, L3400.1490, L3400.4600, L803.0600, L804.3000, L3410.9992, L3100.7870, L7000.9350, L3100.7075 #### [facility] [address] [place], [place], [address] L803.0600on 08-23-2024 HOMOCYSTEINE 6.6 umol/L Normal 0.0-14.5 [facility] Comment on above: Result Comment: Perf ormed at: [facility] [id number] Scale Model Maker: Dmitriy Hardin PhD, Phone: [phone] Performed By: #### L 506.0200, L501.6710, L503.6150, L300.4700, L503.0106, L3100.5850, L3400.1500, L506.1001, L3100.6425, L503.6550, L3400.1490, L3400.4600, L803.0600, L804.3000, L3410.9992, L3100.7870, L7000.9350, L3100.7075 #### [facility] [address] [place], [place], [address] CRPon 08-21-2024 C-REACTIVE PROT 6.11 mg/L High 0.0-3.0 [facility] Comment on above: Performed By: #### L 506.0200, L501.6710, L503.6150, L300.4700, L503.0106, L3100.5850, L3400.1500, L506.1001, L3100.6425, L503.6550, L3400.1490, L3400.4600, L803.0600, L804.3000, L3410.9992, L3100.7870, L7000.9350, L3100.7075 #### [facility] [address] [facility] [address] [place], [place], [address] Ferritinon 08-21-2024 Ferritin [Mass/Vol] 336 ng/mL Normal 37-417 [facility] Comment on above: Performed By: #### L 506.0200, L501.6710, L503.6150, L300.4700, L503.0106, L3100.5850, L3400.1500, L506.1001, L3100.6425, L503.6550, L3400.1490, L3400.4600, L803.0600, L804.3000, L3410.9992, L3100.7870, L7000.9350, L3100.7075 #### [facility] [address] [place], [address] Fibrinogenon 08-21-2024 FIBRINOGEN 442 mg/dl Normal 203-444 [facility] Comment on above: Performed By: #### L 506.0200, L501.6710, L503.6150, L300.4700, L503.0106, L3100.5850, L3400.1500, L506.1001, L3100.6425, L503.6550, L3400.1490, L3400.4600, L803.0600, L804.3000, L3410.9992, L3100.7870, L7000.9350, L3100.7075 #### [facility] [address] [place], [place], [id number] Folates,Serum (Folic Acid)on 08-21-2024 FOLATES,SERUM 38.70 ng/mL High 4.60-34.80 [facility] Comment on above: Order Comment: N Performed By: #### L 506.0200, L501.6710, L503.6150, L300.4700, L503.0106, L3100.5850, L3400.1500, L506.1001, L3100.6425, L503.6550, L3400.1490, L3400.4600, L803.0600, L804.3000, L3410.9992, L3100.7870, L7000.9350, L3100.7075 #### [facility] [address] [place], [place], [address] Ironon 08-21-2024 Iron [Mass/Vol] 124 ug/dL Normal 65-175 [facility] Comment on above: Performed By: #### L 506.0200, L501.6710, L503.6150, L300.4700, L503.0106, L3100.5850, L3400.1500, L506.1001, L3100.6425, L503.6550, L3400.1490, L3400.4600, L803.0600, L804.3000, L3410.9992, L3100.7870, L7000.9350, L3100.7075 #### [facility] [address] [facility] [address] [place], [place], [id number] Vitamin B12on 08-21-2024 Cobalamin (Vitamin B12) [Mass/Vol] 776 pg/mL Normal 180-914 [facility] Comment on above: Performed By: #### L 506.0200, L501.6710, L503.6150, L300.4700, L503.0106, L3100.5850, L3400.1500, L506.1001, L3100.6425, L503.6550, L3400.1490, L3400.4600, L803.0600, L804.3000, L3410.9992, L3100.7870, L7000.9350, L3100.7075 #### [facility] [address] [place], [place], [id number] Vitamin D,25 Hydroxyon 08-21 Vitamin D 25-OH 37.3 ng/mL Normal 30-100 [facility] Comment on above: Result Comment: [facility] min D Status Deficiency: <20 ng/mL (50nmol/L) Insufficiency: 20-30 ng/mL (50-75 nmol/L) Sufficiency: 30-100 ng/mL (75-250 nmol/L) Toxicity: >100 ng/mL (>250 nmol/L) Performed By: #### L 506.0200, L501.6710, L503.6150, L300.4700, L503.0106, L3100.5850, L3400.1500, L506.1001, L3100.6425, L503.6550, L3400.1490, L3400.4600, L803.0600, L804.3000, L3410.9992, L3100.7870, L7000.9350, L3100.7075 #### [facility] [place], [address] TESTOSTERONE FREE AND TOTALo n 05-02-2024 Albumin [Mass/Vol] 4.6 g/dL Normal 3.8-4.9 [facility] Comment on above: Order Comment: Perfo rmed at: - [facility] [id number] Director: Dmitriy Hardin PhD, Phone: [phone] Performed By: #### [id number] #### [facility] [address] [place] [address] SEX HORM BIND GLOB 28.8 nmol/L Normal 19.3-76.4 [facility] Comment on above: Order Comment: Perfo rmed at: 01 - [facility] [address] [id number] Director: Dmitriy Hardin PhD, Phone: [phone] Performed By: #### 4 [id number] #### [address] TESTOST., FREE, CALC 40.6 pg/mL Normal 35.8-168.2 [facility] Comment on above: Order Comment: Perfo rmed at: - [facility] [id number] Director: Dmitriy Hardin PhD, Phone: [phone] Performed By: #### 4 [id number] #### [address] Testosterone [Mass/Vol] 204 ng/dL Low 264-916 [facility] Comment on above: Order Comment: Perfo rmed at: 01 - [facility] [id number] [place], [place] [id number] Director: Dmitriy Hardin PhD, Phone: [phone] Result Comment: Adul t male reference interval is based on a population of healthy nonobese males (BMI <30) between 19 and 39 years old. Radha et.al. JCEM 2017,102;8257-7886. PMID: [id number]. Performed By: #### [id number] #### [facility] [address] [place] [address] LYME ANTIBODY IGG IGM SHAWN N BLOTon 03-12-2024 IGG P18 AB Absent [facility] Comment on above: Order Comment: Perfo rmed at: 01 - [facility] [address] [id number] Scale Model Maker: Brook Sebastian MD, Phone: [phone] Performed By: #### 4 [id number] #### [facility] [address] [place] [address] IGG P23 AB Absent [facility] Comment on above: Order Comment: Perfo rmed at: 01 - [facility] [address] [id number] Scale Model Maker: Brook Sebastian MD, Phone: [phone] Performed By: #### 4 [id number] #### [facility] IGG P28 AB Absent [facility] Comment on above: Order Comment: Perfo rmed at: 01 - [facility] [address] [id number] Scale Model Maker: Brook Sebastian MD, Phone: [phone] Performed By: #### 4 [id number] #### [facility] [address] [place] [address] IGG P30 AB Absent [facility] Comment on above: Order Comment: Perfo rmed at: 01 - [facility] [address] [id number] Scale Model Maker: Brook Sebastian MD, Phone: [phone] Performed By: #### 4 [id number] #### [facility] [address] [place] [address] [place] IGG P39 AB Absent Normal [facility] Comment on above: Order Comment: Perfo rmed at: 01 - [facility] [address] [id number] Scale Model Maker: Brook Sebastian MD, Phone: [phone] Performed By: #### 4 [id number] #### [facility] [address] [place] [address] [place] IGG P41 AB Absent Normal [facility] Comment on above: Order Comment: Perfo rmed at: 01 - [facility] [address] [id number] Scale Model Maker: Brook Sebastian MD, Phone: [phone] Performed By: #### 4 [id number] #### [facility] [address] [place] [address] [place] IGG P45 AB Absent [facility] Comment on above: Order Comment: Perfo rmed at: 01 - [facility] [address] [id number] Scale Model Maker: Brook Sebastian MD, Phone: [phone] Performed By: #### 4 [id number] #### [facility] [address] [place] [address] [place] IGG P58 AB Absent [facility] Comment on above: Order Comment: Perfo rmed at: 01 - [facility] [address] [id number] Scale Model Maker: Brook Sebastian MD, Phone: [phone] Performed By: #### 4 [id number] #### [facility] [address] [place] [address] [place] IGG P66 AB Absent [facility] Comment on above: Order Comment: Perfo rmed at: 01 - [facility] [address] [id number] Scale Model Maker: Brook Sebastian MD, Phone: [phone] Performed By: #### 4 [id number] #### [facility] [address] [place] [address] [place] IGG P93 AB Absent [facility] Comment on above: Order Comment: Perfo rmed at: 01 - [facility] [address] [id number] Scale Model Maker: Brook Sebastian MD, Phone: [phone] Performed By: #### 4 [id number] #### [facility] [address] [place] [address] IGM P23 AB Absent [facility] Comment on above: Order Comment: Perfo rmed at: 01 - [facility] [address] [id number] Scale Model Maker: Brook Sebastian MD, Phone: [phone] Performed By: #### 4 [id number] #### [facility] [address] [place] [address] IGM P39 AB Absent [facility] Comment on above: Order Comment: Perfo rmed at: 01 - [facility] [address] [id number] Scale Model Maker: Brook Sebastian MD, Phone: [phone] Performed By: #### 4 [id number] #### [facility] [address] [place] [address] [place] IGM P41 AB Absent [facility] Comment on above: Order Comment: Perfo rmed at: 01 - [facility] [address] [id number] Scale Model Maker: Brook Sebastian MD, Phone: [phone] Performed By: #### 4 [id number] #### [facility] [address] [place] [address] LYME IGG WB INTERP Negative [facility] Comment on above: Order Comment: Perfo rmed at: 01 - [facility] [address] [id number] Scale Model Maker: Brook Sebastian MD, Phone: [phone] Result Comment: Posi tive: 5 of the following Borrelia-specific bands: 18,23,28,30,39,41,45,58, 66, and 93. Negative: No bands or banding patterns which do not meet positive criteria. Performed By: #### 4 [id number] #### [facility] [address] [place] [address] LYME IGM WB INTERP Negative [facility] Comment on above: Order Comment: Perfo rmed at: 01 - [facility] [address] [id number] Scale Model Maker: Brook Sebastian MD, Phone: [phone] Result Comment: Note : An equivocal or positive EIA result followed by a negative Line Blot result is considered NEGATIVE. An equivocal or positive EIA result followed by a positive Line Blot is considered POSITIVE by the CDC. Positive: 2 of the following bands: 23,39 or 41 Negative: No bands or banding patterns which do not meet positive criteria. Criteria for positivity are those recommended by CDC/ASTPHLD. p23=Osp C, t97=lacrzdgkn Note: Sera from individuals with the following may cross react in the Lyme Line Blot assays: other spirochetal diseases (periodontal disease, leptospirosis, relapsing fever, yaws, and pinta); connective autoimmune (Rheumatoid Arthritis and Systemic Lupus Erythematosus and also individuals with Antinuclear Antibody); other infections ([place] Spotted Fever; Darrel-Biggs Virus, and Cytomegalovirus). Please Note: Lyme immunoblot alone is not recommended for the diagnosis of Lyme disease. Current guidelines recommend the use of a two-tiered approach to Lyme serology testing to improve the sensitivity and specificity of testing. [facility] offers test code 090888 Lyme Disease Serology with Reflex to aid in the diagnosis of Lyme Disease. Performed By: #### 4 [id number] #### [facility] [address] LYME IGG/IGMon 03-07-2024 LYME IGG ERIKA Positive Normal Negative [facility] Comment on above: Order Comment: Perfo rmed at: 01 - [facility] [address] [id number] Scale Model Maker: Dmitriy Hardin PhD, Phone: [phone] Performed By: #### 4 [id number], [id number] #### [facility] [address] LYME IGM ERIKA Negative Normal Negative [facility] Comment on above: Order Comment: Perfo rmed at: 01 - [facility] [address] [id number] Scale Model Maker: Dmitriy Hardin PhD, Phone: [phone] Performed By: #### 4 [id number], [id number] #### [facility] [address] [place] [address] LYME INTERPRETATION Detected Abnormal [facility] Comment on above: Order Comment: Perfo rmed at: 01 - [facility] [address] [id number] Scale Model Maker: Dmitriy Hardin PhD, Phone: [phone] Result Comment: Resu lts are consistent with B. burgdorferi infection (Lyme disease) in the recent or remote past. IgG-class antibodies may remain detectable for months to years following resolution of infection. Results should not be used to monitor or establish adequate response to therapy. Response to therapy is confirmed through resolution of clinical symptoms; additional laboratory testing should not be performed. If both tests are equivocal consider repeat testing in 7 to 14 days if clinically warranted. Performed By: #### 4 [id number], [id number] #### [facility] LYME TOTAL ANTIBODY IGG AND IGMon 03-07-2024 LYME TOTAL ANTIBODY ERIKA Positive Normal Negative [facility] Comment on above: Order Comment: Perfo rmed at: 01 - [facility] [address] [id number] Scale Model Maker: Dmitriy Hardin PhD, Phone: [phone] Result Comment: Evid ence of Lyme antibodies; confirmation indicated. See Lyme IgG and Lyme IgM results (reflex testing), and Lyme interpretation for final interpretation of the Lyme serology reflex algorithm. Performed By: #### 4 [id number], [id number] #### [facility] PSA TOTAL DIAGNOSTICon 03-07 PROSTATE SPECIFIC ANTIGEN 1.37 mg/dL Normal <=4.00 [facility] Comment on above: Result Comment: Perf ormed using [employer] chemiluminescent immunoassay. Results obtained with different test methods or kits cannot be used interchangeably. Performed By: #### 4 [id number] #### [address] TESTOSTERONE FREE AND TOTALo n 03-07-2024 Albumin [Mass/Vol] 4.5 g/dL Normal 3.8-4.9 [facility] Comment on above: Order Comment: Perfo rmed at: 01 - [facility] [place] [id number] Scale Model Maker: Dmitriy Hardin PhD, Phone: [phone] Performed By: #### 4 [id number] #### [facility] [address] [place] [address] SEX HORM BIND GLOB 24.4 nmol/L Normal 19.3-76.4 [facility] Comment on above: Order Comment: Perfo rmed at: 01 - [facility] [place] [address] Scale Model Maker: Dmitriy Hardin PhD, Phone: [phone] Performed By: #### 4 [id number] #### [facility] [address] [place] [address] TESTOST., FREE, CALC 29.6 pg/mL Low 35.8-168.2 [facility] Comment on above: Order Comment: Perfo rmed at: 01 - [facility] [place] [address] Scale Model Maker: Dmitriy Hardin PhD, Phone: [phone] Performed By: #### 4 [id number] #### [facility] [address] [place] [address] Testosterone [Mass/Vol] 138 ng/dL Low 264-916 [facility] Comment on above: Order Comment: Perfo rmed at: 01 - [facility] [place] [address] Scale Model Maker: Dmitriy Hardin PhD, Phone: [phone] Result Comment: Adul t male reference interval is based on a population of healthy nonobese males (BMI <30) between 19 and 39 years old. Radha et.al. JCEM 2017,102;7348-3331. PMID: [id number]. Performed By: #### 4 [id number] #### [facility] [address] [place] [address] XR KNEE 3 VIEWS BILATon 10-0 XR KNEE 3 VIEWS BILAT EXAMINATION TYPE: XR KNEE 3 VIEWS BILAT DATE OF EXAM: 02/01/2023 12:54 PM HISTORY: Pain COMPARISON: NONE FINDINGS: No fracture or dislocation of either knee. Patellofemoral alignment is normal. No joint effusions. Mild joint space narrowing in the medial compartment of both knees. No osteochondral defect or ossified loose bodies. No chondrocalcinosis. No soft tissue abnormalities. Bone mobilization is normal. IMPRESSION: No acute osseous abnormalities of either knee. Mild degenerative changes. -------- FINAL REPORT -------- Dictated By: Evangelista Michaels Dictated Date: 02/01/2023 13:13 Assigned Physician: Evangelista Michaels Reviewed and Electronically Signed By: Evangelista Michaels Signed Date: 02/01/2023 13:15 Workstation ID: [id number] Transcribed By: Self Edit Transcribed Date: 02/01/2023 13:13 Normal [facility] XR Knee 3 Views bilaton No acute osseous abnormalities of either knee. Mild degenerative changes. -------- FINAL REPORT -------- Dictated By: Evagnelista Michaels Dictated Date: 02/01/2023 13:13 Assigned Physician: Evangelista Michaels Reviewed and Electronically Signed By: Evangelista Michaels Signed Date: 02/01/2023 13:15 Workstation ID: [id number] Transcribed By: Self Edit Transcribed Date: 02/01/2023 13:13 POWERSCRIBE EXAMINATION TYPE: XR KNEE 3 VIEWS BILAT DATE OF EXAM: 02/01/2023 12:54 PM HISTORY: Pain COMPARISON: NONE FINDINGS: No fracture or dislocation of either knee. Patellofemoral alignment is normal. No joint effusions. Mild joint space narrowing in the medial compartment of both knees. No osteochondral defect or ossified loose bodies. No chondrocalcinosis. No soft tissue abnormalities. Bone mobilization is normal. POWERSCRIBE Evangelista Michaels MD - 02/01/2023 EXAMINATION TYPE: XR KNEE 3 VIEWS BILAT DATE OF EXAM: 02/01/2023 12:54 PM HISTORY: Pain COMPARISON: NONE FINDINGS: No fracture or dislocation of either knee. Patellofemoral alignment is normal. No joint effusions. Mild joint space narrowing in the medial compartment of both knees. No osteochondral defect or ossified loose bodies. No chondrocalcinosis. No soft tissue abnormalities. Bone mobilization is normal. IMPRESSION: No acute osseous abnormalities of either knee. Mild degenerative changes. -------- FINAL REPORT -------- Dictated By: Evangelista Michaels Dictated Date: 02/01/2023 13:13 Assigned Physician: Evangelista Michaels Reviewed and Electronically Signed By: Evangelista Michaels Signed Date: 02/01/2023 13:15 Workstation ID: [id number] Transcribed By: Self Edit Transcribed Date: 02/01/2023 13:13 [facility] Study observation (narrative) [facility] XR Knee 3 Views bilatOrdered By: Evangelista Michaels on 02-01-2023 [facility] Work Phone: Encounters Encounter Date Encounter Type Care Provider Facility Start: 02-06-2025 End: [facility]06[facility] Start: 12-08-2024 End: 12-08-2024 [facility] Start: 11-02-2024 [facility] Start: 10-24-2024 End: 10-24-2024 [facility] Start: 10-24-2024 Encounter for genera l adult medical examination without abnormal findings [facility] Start: 08-21-2024 End: 08-21-2024 ambulatory Julia Engle NP Facility:[facility] Start: 05-02-2024 End: 05-02-2024 [facility] Start: 03-12-2024 End: 03-12-2024 [facility] Start: 03-07-2024 End: 03-07-2024 [facility] Start: 02-01-2023 ambulatory NO PCP PHYSICIAN [facility] Start: 02-01-2023 End: 02-01-2023 Evaluation and management of inpatient [facility] Start: 02-01-2023 End: 02-01-2023 Subsequent hospital visit by physician [facility] Comment on above: Key cyst, right Start: 05-21-2017 End: 05-21-2017 Ambulatory [facility] Facility:[facility] Procedures Date Procedure Procedure Detail Performing Clinician Start: 02-01-2023 Radiologic examinati on knee 3 views Tracie Diaz DO Work Phone: Plan of Treatment Date Care Activity Detail Author Start: 02-01-2023 Adolescent depressio n screening assessment Depression Screening [facility] Start: 02-01-2023 Hepatitis C screening Hepatitis C Sc reening [facility] Start: 02-01-2023 HIV screening HIV Screening [facility] Start: 02-01-2023 Lipid panel Cholesterol Sc reening (Lipid Panel) [facility] Start: 02-01-2023 Screening for malign ant neoplasm of colon Colorectal Cancer Screening: Colonoscopy [facility] Start: 02-01-2023 Social Influencers o f Health Screening Social Influencers of Health Screening [facility] Start: 12-29-2022 Influenza vaccination Influenza Vacc ine (#1) [facility] Start: 10-05-2020 COVID-19 Vaccine (3 - Moderna series) COVID-19 Vaccine (3 - Moderna series) [facility] Start: 06-18-2019 DTaP,Tdap,and Td Vac cines (2 - Td or Tdap) DTaP,Tdap,and Td Vaccines (2 - Td or Tdap) [facility] Start: 2018 Zoster Vaccines (1 of 2) Zoster Vacc red (1 of 2) [facility] Start: 1970 Hepatitis B Vaccines (1 of 3 - 3-dose series) Hepatitis B Vaccines (1 of 3 - 3-dose series) [facility] Payers Date Payer Category Payer Self-pay 2022 Private Health Insurance [facility] [employer] [id number] 2022-Present [address] [place] [address] [id number] 2022 Private Health Insurance [id number] 1970 Unknown [id number] .[id number] 1968 Unknown [id number] [id number] .297 1968 Unknown [id number] [id number] .297 1968 Unknown [id number] [id number] .297 1968 Unknown [id number] [id number] .297 1968 Unknown [id number] [id number] .297 1968 Unknown [id number] 2.16.840.1.152018.3.579.2 .297 1968 Unknown [id number] 2.16.840.1.003530.3.579.2 .297 Unknown [id number] [id number] .462 Unknown [id number] Social History Date Type Detail Facility Tobacco smoking stat [facility] Tobacco smoking consumption unknown [facility] Start: 1970 Sex Assigned At Not on file [facility] Gender identity Not on file [facility] Evaluation note Note Date & Type Note Facility Evaluation note Diagnosis Key cyst, right documented in this encounter [facility] Summary Purpose Family History No Family History Records FoundNo Family History Records FoundNo Family History Records FoundNo Family History Records Found Advance Directives No Advanced Directives Records FoundNo Advanced Directives Records FoundNo Advanced Directives Records FoundNo Advanced Directives Records Found Additional Source Comments (unrecognized sect ion and content) No Status Records FoundNo Status Records FoundNo Status Records FoundNo Status Records Found INFORMATION SOURCE (unrecogn ized section and content) DATE CREATED AUTHOR 10/22/2017 [facility] DATE CREATED AUTHOR AUTHOR'S ORGANIZ ATION 02/05/2023 [facility] DATE CREATED AUTHOR AUTHOR'S ORGANIZ ATION 09/26/2024 [facility] DATE CREATED AUTHOR AUTHOR'S ORGANIZ ATION 02/08/[address] [facility] Care Teams (unrecognized sec tion and content) Electronic Prepress Operator Relationship Specialty Start Date End Date Physician, No Pcp PCP - General 02/01/23 FOR RECORDS PERTAINING TO PATIENTS WHO ARE OR HAVE BEEN ENROLLED IN A CHEMICAL DEPENDENCY/SUBSTANCEABUSE PROGRAM, SOME INFORMATION MAY BE OMITTED. This clinical summary was aggregated from multiple sources. Caution should be exercised in using it in the provision of clinical care. This summary normalizes information from multiple sources, and as a consequence, information in this document may materially change the coding, format and clinical context of patient data. In addition, data may be omitted in some cases. CLINICAL DECISIONS SHOULD BE BASED ON THE PRIMARY CLINICAL RECORDS. [facility]. provides no warranty or guarantee of the accuracy or completeness of information in this document.
[2025-02-13 18:55] LABS: Magnesium 2.3 mg/dL (1.5-2.2); Vitamin B12 1009 pg/mL (180-914); Vitamin D,25 Hydroxy 33.7 ng/mL (30-100)
[2025-02-13 19:09] LABS: FOLATES,SERUM (FOLIC ACID) 32.00 ng/mL (4.60-34.80)
[2025-02-19 00:07] LABS: Copper, Serum or Plasma 141 ug/dL (69-132); Red Blood Cell Count Test/G6PD 4.58 x10E6/uL (4.14-5.80); Zinc, Plasma or Serum 126 ug/dL (44-115)
== END | disposition home or self-care (01) ==
PROVIDERS: Visit Provider Nurse Practitioner Family
DX: A69.20 Lyme disease, unspecified (principal); G89.29 Other chronic pain; R53.82 Chronic fatigue, unspecified; R61 Generalized hyperhidrosis; H93.13 Tinnitus, bilateral; I10 Essential (primary) hypertension; R06.00 Dyspnea, unspecified; G90.9 Disorder of the autonomic nervous system, unspecified; F41.9 Anxiety disorder, unspecified; R45.4 Irritability and anger; A44.0 Systemic bartonellosis; D68.59 Other primary thrombophilia
CPT/HCPCS: 82306; 82525; 82607; 82746; 82955; 83735; 84630